=== PATIENT | male | born 1955 | race American Indian/Alaskan Native ===

== ENCOUNTER 2018-11-06 08:05 | Inpatient (IN) | payer MEDICAID ==
[2018-11-06] MEDS ORDERED: DUONEB *Not for PRN Use IH ONE ×2 (08:15→09:30)
[2018-11-06 09:15] LABS: Basophils # (Auto) 0.3 K/mm3 (0.0-0.1); Basophils % (Auto) 2.4 % (0.0-1.8); Eosinophils # (Auto) 0.2 K/mm3 (0.0-0.4); Eosinophils % (Auto) 1.8 % (0.0-4.3); Hematocrit 44.1 % (35.5-45.6); Hemoglobin 14.4 gm/dl (11.8-15.2); Lymphocytes # (Auto) 3.7 K/mm3 (1.2-5.4); Lymphocytes % (Auto) 30.1 % (13.4-35.0); Mean Corpuscular HGB Conc 33 % (32-34); Mean Corpuscular Volume 89 fl (84-94); Monocytes # (Auto) 1.2 K/mm3 (0.0-0.8); Monocytes % (Auto) 9.4 % (0.0-7.3); Platelet Count 264 K/mm3 (140-440); Red Blood Count 4.95 M/mm3 (3.65-5.03)
[2018-11-06 09:21] LABS: INR 1.01 (0.87-1.13)
[2018-11-06 09:22] LABS: Partial Thromboplastin Time 24.4 Sec. (24.2-36.6)
[2018-11-06 09:26] LABS: Alanine Aminotransferase 18 units/L (7-56); Albumin 3.9 g/dL (3.9-5); BUN/Creatinine Ratio 10; Blood Urea Nitrogen 8 mg/dL (9-20); Hemolysis Index 20
[2018-11-06] MEDS ORDERED: MAXIPIME/NS 1 GM/100 ML 1 GM/100 ML BAG IV ONE (11:11)
--- NOTE | 2018-11-06 11:17 | Emergency Department Report ---
ED General Adult HPI - General Chief complaint: Dyspnea/Respdistress Stated complaint: LIZETTE Time Seen by Provider: 11/06/18 08:48 Source: patient, family, EMS Mode of arrival: Stretcher Limitations: No Limitations - History of Present Illness Initial comments: Patient presents to support with a chief complaint of increasing shortness of breath. The patient has a history of COPD. Prior to arrival EMS. The patient IV steroids, 2 g IV magnesium, and breathing treatments. Patient complains of chest tightness but denies chest pain. Patient is using accessory muscles to breathe and is in respiratory distress upon arrival -: Sudden Severity scale (0 -10): 0 Consistency: constant Improves with: none Worsens with: none Associated Symptoms: denies other symptoms Treatments Prior to Arrival: none - Related Data Home Medications Medication Instructions Recorded Confirmed Last Taken Allopurinol [Zyloprim] 100 mg PO QDAY 11/06/18 11/06/18 Unknown Amlodipine Besylate [Norvasc] 5 mg PO QDAY 11/06/18 11/06/18 Unknown Aspirin [Adult Aspirin] 81 mg PO QDAY 11/06/18 11/06/18 Unknown Famotidine [Pepcid] 20 mg PO QDAY 11/06/18 11/06/18 Unknown Losartan Potassium 100 mg PO QDAY 11/06/18 11/06/18 Unknown Metformin HCl [Glucophage Xr] 500 mg PO BID 11/06/18 11/06/18 Unknown Naproxen [Naprosyn] 500 mg PO BID 11/06/18 11/06/18 Unknown Simvastatin 20 mg PO QHS 11/06/18 11/06/18 Unknown Allergies Allergy/AdvReac Type Severity Reaction Status Date / Time No Known Allergies Allergy Unverified 11/06/18 08:18 ED Review of Systems ROS: Stated complaint: LIZETTE Other details as noted in HPI Constitutional: denies: chills, fever Eyes: denies: eye pain, eye discharge, vision change ENT: denies: ear pain, throat pain Respiratory: shortness of breath. denies: cough, wheezing Cardiovascular: denies: chest pain, palpitations Endocrine: no symptoms reported Gastrointestinal: denies: abdominal pain, nausea, diarrhea Genitourinary: denies: urgency, dysuria Musculoskeletal: denies: back pain, joint swelling, arthralgia Skin: denies: rash, lesions Neurological: denies: headache, weakness, paresthesias Psychiatric: denies: anxiety, depression Hematological/Lymphatic: denies: easy bleeding, easy bruising ED Past Medical Hx - Past Medical History Previous Medical History?: Yes Hx Hypertension: Yes Hx Diabetes: Yes Additional medical history: Acid Reflux. Gout. High cholesterol - Social History Smoking Status: Former Smoker Substance Use Type: Alcohol - Medications Home Medications: Home Medications Medication Instructions Recorded Confirmed Last Taken Type Allopurinol [Zyloprim] 100 mg PO QDAY 11/06/18 11/06/18 Unknown History Amlodipine Besylate [Norvasc] 5 mg PO QDAY 11/06/18 11/06/18 Unknown History Aspirin [Adult Aspirin] 81 mg PO QDAY 11/06/18 11/06/18 Unknown History Famotidine [Pepcid] 20 mg PO QDAY 11/06/18 11/06/18 Unknown History Losartan Potassium 100 mg PO QDAY 11/06/18 11/06/18 Unknown History Metformin HCl [Glucophage Xr] 500 mg PO BID 11/06/18 11/06/18 Unknown History Naproxen [Naprosyn] 500 mg PO BID 11/06/18 11/06/18 Unknown History Simvastatin 20 mg PO QHS 11/06/18 11/06/18 Unknown History ED Physical Exam - General Limitations: No Limitations General appearance: alert, in distress - Head Head exam: Present: atraumatic, normocephalic - Eye Eye exam: Present: normal appearance. Absent: PERRL, EOMI - ENT ENT exam: Present: mucous membranes moist - Neck Neck exam: Present: normal inspection - Respiratory Respiratory exam: Present: respiratory distress (and moderate risk for distress and using assist her muscles for respiration), decreased breath sounds - Cardiovascular Cardiovascular Exam: Present: regular rate, normal rhythm. Absent: systolic murmur, diastolic murmur, rubs, gallop - GI/Abdominal GI/Abdominal exam: Present: soft, normal bowel sounds. Absent: distended, tenderness - Rectal Rectal exam: Present: deferred - Extremities Exam Extremities exam: Present: normal inspection - Back Exam Back exam: Present: normal inspection - Neurological Exam Neurological exam: Present: alert, oriented X3, CN II-XII intact. Absent: motor sensory deficit - Psychiatric Psychiatric exam: Present: normal affect, normal mood - Skin Skin exam: Present: warm, dry, intact, normal color. Absent: rash ED Course Vital Signs 11/06/18 11/06/18 11/06/18 08:22 08:24 08:30 Temperature 98.4 F Pulse Rate 118 H 121 H Respiratory 30 H 30 H 29 H Rate Blood Pressure 161/87 Blood Pressure 146/83 [Left] O2 Sat by Pulse 99 99 100 Oximetry 11/06/18 11/06/18 11/06/18 09:01 09:30 10:00 Temperature Pulse Rate 127 H 111 H 104 H Respiratory 22 22 20 Rate Blood Pressure 107/69 124/76 118/66 Blood Pressure [Left] O2 Sat by Pulse 98 96 96 Oximetry 11/06/18 11/06/18 11/06/18 10:30 11:00 11:30 Temperature Pulse Rate 101 H 90 90 Respiratory 15 20 20 Rate Blood Pressure 130/61 125/71 137/80 Blood Pressure [Left] O2 Sat by Pulse 96 96 96 Oximetry ED Medical Decision Making - Lab Data Result diagrams: 11/06/18 08:50 11/06/18 08:50 Lab Results 11/06/18 11/06/18 11/06/18 Range/Units 08:50 08:50 08:50 WBC 12.3 H (4.5-11.0) K/mm3 RBC 4.95 (3.65-5.03) M/mm3 Hgb 14.4 (11.8-15.2) gm/dl Hct 44.1 (35.5-45.6) % MCV 89 (84-94) fl MCH 29 (28-32) pg MCHC 33 (32-34) % RDW 15.0 (13.2-15.2) % Plt Count 264 (140-440) K/mm3 Lymph % (Auto) 30.1 (13.4-35.0) % [place] % (Auto) 9.4 H (0.0-7.3) % Eos % (Auto) 1.8 (0.0-4.3) % Baso % (Auto) 2.4 H (0.0-1.8) % Lymph # 3.7 (1.2-5.4) K/mm3 [place] # 1.2 H (0.0-0.8) K/mm3 Eos # 0.2 (0.0-0.4) K/mm3 Baso # 0.3 H (0.0-0.1) K/mm3 Seg Neutrophils % 56.3 (40.0-70.0) % Seg Neutrophils # 6.9 (1.8-7.7) K/mm3 PT 13.0 (12.2-14.9) Sec. INR 1.01 (0.87-1.13) APTT 24.4 (24.2-36.6) Sec. Sodium 142 (137-145) mmol/L Potassium 4.2 (3.6-5.0) mmol/L Chloride 101.6 (98-107) mmol/L Carbon Dioxide 26 (22-30) mmol/L Anion Gap 19 mmol/L BUN 8 L (9-20) mg/dL Creatinine 0.8 (0.8-1.5) mg/dL Estimated GFR > 60 ml/min BUN/Creatinine Ratio 10 % Glucose 175 H (75-100) mg/dL Calcium 9.0 (8.4-10.2) mg/dL Total Bilirubin 0.20 (0.1-1.2) mg/dL AST 24 (5-40) units/L ALT 18 (7-56) units/L Alkaline Phosphatase 69 (35-129) units/L Troponin T < 0.010 (0.00-0.029) ng/mL NT-Pro-B Natriuret Pep 63.73 (0-900) pg/mL Total Protein 6.6 (6.3-8.2) g/dL Albumin 3.9 (3.9-5) g/dL Albumin/Globulin Ratio 1.4 % Lipase 16 (13-60) units/L 11/06/ Range/Units 10:23 WBC (4.5-11.0) K/mm3 RBC (3.65-5.03) M/mm3 Hgb (11.8-15.2) gm/dl Hct (35.5-45.6) % MCV (84-94) fl MCH (28-32) pg MCHC (32-34) % RDW (13.2-15.2) % Plt Count (140-440) K/mm3 Lymph % (Auto) (13.4-35.0) % [place] % (Auto) (0.0-7.3) % Eos % (Auto) (0.0-4.3) % Baso % (Auto) (0.0-1.8) % Lymph # (1.2-5.4) K/mm3 [place] # (0.0-0.8) K/mm3 Eos # (0.0-0.4) K/mm3 Baso # (0.0-0.1) K/mm3 Seg Neutrophils % (40.0-70.0) % Seg Neutrophils # (1.8-7.7) K/mm3 PT (12.2-14.9) Sec. INR (0.87-1.13) APTT (24.2-36.6) Sec. Sodium (137-145) mmol/L Potassium (3.6-5.0) mmol/L Chloride (98-107) mmol/L Carbon Dioxide (22-30) mmol/L Anion Gap mmol/L BUN (9-20) mg/dL Creatinine (0.8-1.5) mg/dL Estimated GFR ml/min BUN/Creatinine Ratio % Glucose (75-100) mg/dL Calcium (8.4-10.2) mg/dL Total Bilirubin (0.1-1.2) mg/dL AST (5-40) units/L ALT (7-56) units/L Alkaline Phosphatase (35-129) units/L Troponin T < 0.010 (0.00-0.029) ng/mL NT-Pro-B Natriuret Pep (0-900) pg/mL Total Protein (6.3-8.2) g/dL Albumin (3.9-5) g/dL Albumin/Globulin Ratio % Lipase (13-60) units/L - EKG Data -: EKG Interpreted by Oh EKG shows normal: sinus rhythm Rate: normal - Radiology Data Radiology results: report reviewed - Medical Decision Making patient placed on BiPaP Portable chest made to remove the patient from BiPAP to no avail Critical Care Time: Yes Critical care time in (mins) excluding proc time.: 45 Critical care attestation.: If time is entered above; I have spent that time in minutes in the direct care of this critically ill patient, excluding procedure time. ED Disposition Clinical Impression: Respiratory failure, COPD exacerbation Disposition: OP ADMIT IP TO THIS HOSP Is pt being admited?: Yes Does the pt Need Aspirin: Yes Condition: Fair Instructions: Chronic Obstructive Pulmonary Disease (ED) Referrals: VERONIQUE TAYLOR MD [Primary Care Provider] - 3-5 Days
[2018-11-06 11:19] LABS: ABG Base Excess 0.6 mmol/L (-2.0-3.0); ABG HCO3 26.5 mmol/L (20.0-26.0); ABG PCO2 47.3 mm Hg; ABG PH 7.366 pH Units (7.350-7.450); ABG PO2 95.9 mm Hg (80.0-90.0)
[2018-11-06 11:21] LABS: ABG Oxygen Saturation 96.9 % (95.0-99.0)
[2018-11-06 11:22] LABS: ABG Methemoglobin 0.4 % (0.0-1.5)
--- NOTE | 2018-11-06 11:39 | XRay Report ---
CHEST 1 VIEW 11/06/2018 11:10 AM INDICATION / CLINICAL INFORMATION: sob. COMPARISON: None available. FINDINGS: SUPPORT DEVICES: None. HEART / MEDIASTINUM: Upper normal size for AP portable technique. LUNGS / PLEURA: No significant pulmonary or pleural abnormality. No pneumothorax. ADDITIONAL FINDINGS: No significant additional findings. IMPRESSION: 1. No acute findings. Signer Name: Mauro Jones MD Signed: 11/06/2018 11:34 AM Workstation Name: [id number]
[2018-11-06] MEDS ORDERED: BABY ASPIRIN PO ONE (11:53)
--- NOTE | 2018-11-06 12:17 | History and Physical Report ---
History of Present Illness Chief complaint: I just cant catch my breath History of present illness: 63 YO Male with Obesity Hypoventilation, LAUREN noncompliant with CPAP, HTN, DM, GERD, Gout, HLD presents to ED for evaluation. Pt states that he has experienced shortness of breath over the past 2 days with worsening symptoms over the past 1 day. Pt acknowledges increased productive cough with clear sputum, increased ne bulizer therapy without relief. EMS notified, and upon arrival the patient was found to be in distress and transported to [facility]. Pt seen and evaluated in ED and found to have COPD Exacerbation complicated by Pneumonia, and Acute Hypoxemic Respiratory Failure. Pt treated with nebulizer therapy, and NIPPV in the ED without significant improvement. Pt admitted to medical floor and initiated on Pneumonia protocol. Pt denies fever, chills, CP, Palpitations, NVD, Trauma, skin rash, malaise, unilateral leg swelling, calf pain, prolonged travel/immobility, individual/family history of DVT/PE/Bleeding/Blood Clotting Disorders. No prior admission for review. All listed medication reconciled at time of admission. Pulmonary team consulted in ED. Past History Past Medical History: COPD, diabetes, GERD, hypertension, hyperlipidemia, other (LAUREN) Past Surgical History: No surgical history, Other (reviewed) Social history: , lives with family. denies: smoking, alcohol abuse, prescription drug abuse Family history: diabetes, hypertension Medications and Allergies Allergies Allergy/AdvReac Type Severity Reaction Status Date / Time No Known Allergies Allergy Unverified 11/06/18 08:18 Home Medications Medication Instructions Recorded Confirmed Last Taken Type Allopurinol [Zyloprim] 100 mg PO QDAY 11/06/18 11/06/18 Unknown History Amlodipine Besylate [Norvasc] 5 mg PO QDAY 11/06/18 11/06/18 Unknown History Aspirin [Adult Aspirin] 81 mg PO QDAY 11/06/18 11/06/18 Unknown History Famotidine [Pepcid] 20 mg PO QDAY 11/06/18 11/06/18 Unknown History Losartan Potassium 100 mg PO QDAY 11/06/18 11/06/18 Unknown History Metformin HCl [Glucophage Xr] 500 mg PO BID 11/06/18 11/06/18 Unknown History Naproxen [Naprosyn] 500 mg PO BID 11/06/18 11/06/18 Unknown History Simvastatin 20 mg PO QHS 11/06/18 11/06/18 Unknown History Review of Systems Constitutional: no weight loss, no weight gain, no fever, no chills Ears, nose, mouth and throat: no ear pain, no ear discharge, no tinnitis, no decreased hearing, no nose pain, no nasal congestion Cardiovascular: no chest pain, no orthopnea, no palpitations Respiratory: cough, cough with sputum, excessive sputum, shortness of breath, no congestion, no wheezing, no pleurisy Gastrointestinal: no abdominal pain, no nausea, no vomiting, no constipation, no change in bowel habits Genitourinary Male: no hematuria, no flank pain, no discharge, no urinary frequency, no urinary hesitancy, no nocturia Rectal: no pain, no bleeding Musculoskeletal: no neck stiffness, no neck pain, no shooting arm pain, no arm numbness/tingling, no low back pain, no shooting leg pain, no leg numbness/tingling Integumentary: no rash, no pruritis, no redness, no sores, no wounds, no boils Neurological: no transient paralysis, no paralysis, no weakness, no parathesias, no numbness, no tingling, no seizures, no syncope Psychiatric: no anxiety, no memory loss, no sleep disturbances, no insomnia, no change in appetite, no change in libido, no suicidal ideation, no disorientation Endocrine: no cold intolerance, no heat intolerance, no polyphagia, no excessive thirst, no excessive sweating, no flushing Hematologic/Lymphatic: no easy bruising, no easy bleeding Allergic/Immunologic: no urticaria, no allergic rhinitis, no wheezing Exam - Constitutional Vitals: Temp Pulse Resp BP Pulse Ox 98.4 F 90 20 137/80 96 11/06/18 08:22 11/06/18 11:30 11/06/18 11:30 11/06/18 11:30 11/06/18 11:30 General appearance: Present: mild distress, obese - EENT Eyes: Present: PERRL ENT: hearing intact, clear oral mucosa - Neck Neck: Present: supple, normal ROM - Respiratory Respiratory effort: labored Respiratory: bilateral: diminished, rhonchi - Cardiovascular Heart Sounds: Present: S1 & S2. Absent: rub, click - Extremities Extremities: pulses symmetrical, No edema Peripheral Pulses: within normal limits - Abdominal General gastrointestinal: Present: soft, non-tender, non-distended, normal bowel sounds Male genitourinary: Present: normal - Integumentary Integumentary: Present: clear, warm, dry - Musculoskeletal Musculoskeletal: gait normal, strength equal bilaterally - Psychiatric Psychiatric: appropriate mood/affect, intact judgment & insight - Neurologic Neurologic: CNII-XII intact, moves all extremities Results - Labs CBC & Chem 7: 11/06/18 08:50 11/06/18 08:50 Labs: Abnormal lab results 11/06/18 11/06/18 11/06/18 Range/Units 08:50 08:50 11:24 WBC 12.3 H (4.5-11.0) K/mm3 [place] % (Auto) 9.4 H (0.0-7.3) % Baso % (Auto) 2.4 H (0.0-1.8) % [place] # 1.2 H (0.0-0.8) K/mm3 Baso # 0.3 H (0.0-0.1) K/mm3 ABG pO2 (80.0-90.0) mm Hg ABG HCO3 (20.0-26.0) mmol/L BUN 8 L (9-20) mg/dL Glucose 175 H (75-100) mg/dL Lactic Acid 4.40 H* (0.7-2.0) mmol/L 11/06/18 Range/Units Unknown WBC (4.5-11.0) K/mm3 [place] % (Auto) (0.0-7.3) % Baso % (Auto) (0.0-1.8) % [place] # (0.0-0.8) K/mm3 Baso # (0.0-0.1) K/mm3 ABG pO2 95.9 H (80.0-90.0) mm Hg ABG HCO3 26.5 H (20.0-26.0) mmol/L BUN (9-20) mg/dL Glucose (75-100) mg/dL Lactic Acid (0.7-2.0) mmol/L Assessment and Plan - Patient Problems (1) COPD exacerbation Current Visit: Yes Status: Acute Plan to address problem: IV steroid therapy, IV antibiotic therapy, IV steroid therapy, chest x ray, pulse oximetry, NIPPV, pulmonary consulted, CT Angio chest. (2) Respiratory failure Current Visit: Yes Status: Acute Qualifiers: Chronicity: acute Respiratory failure complication: hypoxia Qualified Code(s): J96.01 - Acute respiratory failure with hypoxia Plan to address problem: Chest x ray, supplemental oxygen, nebulizer therapy, NIPPV, IV steroid therapy, mangesium sulfate IV x 1, pulse oximetry, ABG, Pulmonary consulted, (3) Pneumonia Current Visit: Yes Status: Acute Qualifiers: Laterality: left Lung location: lower lobe of lung Plan to address problem: Pneumonia protocol, IV antibiotic therapy, chest x ray, blood cultures, supplemental oxygen, nebulizer therapy, supportive care. (4) Acidosis Current Visit: Yes Status: Acute Plan to address problem: Treat pneumonia, supportive care, repeat bmp in am (5) Obesity hypoventilation syndrome Current Visit: Yes Status: Acute Plan to address problem: Balanced diet, increased physical activity at discharge, NIPPV as clinically indicated. (6) HTN (hypertension) Current Visit: Yes Status: Acute Qualifiers: Hypertension type: essential hypertension Qualified Code(s): I10 - Essential (primary) hypertension Plan to address problem: Monitor BP q shift, supportive care. (7) HLD (hyperlipidemia) Current Visit: Yes Status: Acute Qualifiers: Hyperlipidemia type: mixed hyperlipidemia Qualified Code(s): E78.2 - Mixed hyperlipidemia Plan to address problem: Statin therapy, lipid panel, low cholesterol diet. (8) Diabetes Current Visit: Yes Status: Acute Plan to address problem: ADA diet, insulin, accu check, hypoglycemia protocol (9) GERD (gastroesophageal reflux disease) Current Visit: Yes Status: Acute Qualifiers: Esophagitis presence: without esophagitis Qualified Code(s): K21.9 - Gastro-esophageal reflux disease without esophagitis Plan to address problem: PPi therapy, supportive care. (10) DVT prophylaxis Current Visit: Yes Status: Acute Plan to address problem: SCD to BLE while in bed, prophylactic lovenox
[2018-11-06] MEDS ORDERED: SODIUM CHLORIDE FLUSH SYRINGE 10 ML IV PRN (12:27)
[2018-11-06] MEDS ORDERED: ZOFRAN IV PRN (12:27)
[2018-11-06] MEDS ORDERED: TYLENOL PO PRN (12:27)
--- NOTE | 2018-11-06 13:34 | Cat Scan Report ---
CTA CHEST WITH CONTRAST INDICATION : MAIN: dypsnea TECH NOTES: PT C/O SOB X LAST NIGHT. HX: HTN AND PRE-DM. 100 CC OMNI 350 . Shortness of breath for one day TECHNIQUE: Axial imaging performed through the chest, with contrast bolus timing set to maximize opa cification of the pulmonary arteries. Sagittal and coronal reformatted images. 3-plane MIP reformatte d images were obtained. All CT scans at this location are performed using CT dose reduction for ALAR A by means of automated exposure control. 100 mL of intravenous contrast administered. COMPARISON: None FINDINGS: Bolus: Contrast bolus timing is adequate. PTE: No filling defect is present to suggest PTE. Mediastinum: Heart and great vessels appear normal. No pathologic mediastinal adenopathy. Lungs: Lungs are clear. Minimal emphysematous changes are noted in the upper lung zones. Bones: Degenerative changes in the spine with nothing acute. Upper abdomen: Limited imaging of the upper abdomen shows nothing acute. IMPRESSION: Negative for PTE. Clear lungs. Signer Name: Raza Moreno Jr, MD Signed: 11/06/2018 1:29 PM Workstation Name: [id number]
[2018-11-06] MEDS: HumaLOG SUB-Q SCH ×2 (18:17→23:16)
[2018-11-06] MEDS: NACL 0.9% 1000 ML 1,000 ML IV SCH (21:55)
[2018-11-06] MEDS: SOLU-Medrol IV SCH (21:56)
[2018-11-06] MEDS: NAPROSYN PO SCH (21:56)
[2018-11-06] MEDS: PEPCID PO SCH (21:56)
[2018-11-06] MEDS: SODIUM CHLORIDE FLUSH SYRINGE 10 ML IV SCH (21:56)
[2018-11-06] MEDS: PRAVACHOL PO SCH (21:57)
[2018-11-06] MEDS: LOVENOX SUB-Q SCH (21:57)
[2018-11-06] MEDS ORDERED: NON-FORMULARY (Simvastatin [Simvastatin] 20 MG) PO SCH (22:00)
[2018-11-07 04:36] LABS: Basophils % (Auto) 0.1 % (0.0-1.8); Hematocrit 43.6 % (35.5-45.6); Hemoglobin 14.3 gm/dl (11.8-15.2); Lymphocytes # (Auto) 1.4 K/mm3 (1.2-5.4); Lymphocytes % (Auto) 7.6 % (13.4-35.0); Mean Corpuscular HGB Conc 33 % (32-34); Mean Corpuscular Volume 88 fl (84-94); Monocytes # (Auto) 0.6 K/mm3 (0.0-0.8); Monocytes % (Auto) 3.2 % (0.0-7.3); Platelet Count 257 K/mm3 (140-440); Red Blood Count 4.96 M/mm3 (3.65-5.03); Red Cell Distribution Width 14.9 % (13.2-15.2)
[2018-11-07 04:55] LABS: BUN/Creatinine Ratio 18; Blood Urea Nitrogen 14 mg/dL (9-20); Calcium 8.9 mg/dL (8.4-10.2); Hemolysis Index 0
[2018-11-07] MEDS: HumaLOG SUB-Q SCH ×3 (08:40→17:54)
[2018-11-07] MEDS: NAPROSYN PO SCH ×2 (09:36→21:16)
[2018-11-07] MEDS: HALFPRIN EC PO SCH (09:37)
[2018-11-07] MEDS: ZYLOPRIM PO SCH (09:37)
[2018-11-07] MEDS: NORVASC PO SCH (09:37)
[2018-11-07] MEDS: SOLU-Medrol IV SCH ×2 (09:38→21:16)
[2018-11-07] MEDS: PEPCID PO SCH ×2 (09:38→21:16)
[2018-11-07] MEDS: COZAAR PO SCH (09:38)
[2018-11-07] MEDS: ROCEPHIN/NS 2 GM/100 ML 2 GM/100 ML BAG IV SCH (09:39)
[2018-11-07] MEDS ORDERED: NON-FORMULARY (Losartan Potassium [Losartan Potassium] 100 MG) PO SCH (10:00)
[2018-11-07] MEDS: PROVENTIL IH PRN ×3 (10:15→21:16)
--- NOTE | 2018-11-07 11:35 | Consultation ---
History of Present Illness Reason for consult: COPD, obstructive sleep apnea History of present illness: Mr. Valdez is a 63-year-old -[place] male with known history of heavy cigarette smoking until 2 months ago was admitted to the hospital with increasing shortness of breath and cough. Patient was found to have COPD with CO2 retention. He also in the past has been diagnosed with sleep apnea but does not have CPAP machine. Patient has chronic history of dyspnea on exertion. He has been diagnosed with COPD in the past. He reports cough productive of slightly yellow sputum at this time. He denied any hemoptysis. He has history of snoring and excessive daytime sleepiness. Past History Past Medical History: COPD, diabetes, GERD, hypertension, hyperlipidemia, other (LAUREN) Past Surgical History: No surgical history, Other (reviewed) Social history: , lives with family. denies: smoking, alcohol abuse, prescription drug abuse Family history: diabetes, hypertension Medications and Allergies Allergies Allergy/AdvReac Type Severity Reaction Status Date / Time No Known Allergies Allergy Unverified 11/06/18 08:18 Home Medications Medication Instructions Recorded Confirmed Last Taken Type Allopurinol [Zyloprim] 100 mg PO QDAY 11/06/18 11/06/18 Unknown History Amlodipine Besylate [Norvasc] 5 mg PO QDAY 11/06/18 11/06/18 Unknown History Aspirin [Adult Aspirin] 81 mg PO QDAY 11/06/18 11/06/18 Unknown History Famotidine [Pepcid] 20 mg PO QDAY 11/06/18 11/06/18 Unknown History Losartan Potassium 100 mg PO QDAY 11/06/18 11/06/18 Unknown History Metformin HCl [Glucophage Xr] 500 mg PO BID 11/06/18 11/06/18 Unknown History Naproxen [Naprosyn] 500 mg PO BID 11/06/18 11/06/18 Unknown History Simvastatin 20 mg PO QHS 11/06/18 11/06/18 Unknown History Active Meds: Active Medications Acetaminophen (Tylenol) 650 mg PO Q4H PRN PRN Reason: Pain MILD(1-3)/Fever >100.5/BENITO Albuterol (Proventil) 2.5 mg IH Q4HRT PRN PRN Reason: Shortness Of Breath Last Admin: 11/07/18 10:15 Dose: 2.5 mg Documented by: Allopurinol (Zyloprim) 100 mg PO QDAY [facility] Last Admin: 11/07/18 09:37 Dose: 100 mg Documented by: Amlodipine Besylate (Norvasc) 5 mg PO QDAY [facility] Last Admin: 11/07/18 09:37 Dose: 5 mg Documented by: Aspirin (Halfprin Ec) 81 mg PO QDAY [facility] Last Admin: 11/07/18 09:37 Dose: 81 mg Documented by: Enoxaparin Sodium (Lovenox) 40 mg SUB-Q QDAY@2200 [facility] Last Admin: 11/06/18 21:57 Dose: 40 mg Documented by: Famotidine (Pepcid) 10 mg PO BID [facility] Last Admin: 11/07/18 09:38 Dose: 10 mg Documented by: Azithromycin 500 mg/ Sodium (Chloride) 250 mls @ 250 mls/hr IV Q24HR [facility]; Protocol Ceftriaxone Sodium (Rocephin/Ns 2 Gm/100 Ml) 2 gm in 100 mls @ 200 mls/hr IV Q24HR [facility]; Protocol Last Admin: 11/07/18 09:39 Dose: 200 mls/hr Documented by: Sodium Chloride (Nacl 0.9% 1000 Ml) 1,000 mls @ 75 mls/hr IV DIRECT [facility] Last Admin: 11/06/18 21:55 Dose: 75 mls/hr Documented by: Insulin Human Lispro (Humalog) 0 unit SUB-Q ACHS [facility]; Protocol Last Admin: 11/07/18 08:40 Dose: Not Given Documented by: Losartan Potassium (Cozaar) 100 mg PO QDAY [facility] Last Admin: 11/07/18 09:38 Dose: 100 mg Documented by: Methylprednisolone Sodium Succinate (Solu-Medrol) 40 mg IV Q12HR [facility] Last Admin: 11/07/18 09:38 Dose: 40 mg Documented by: Naproxen (Naprosyn) 500 mg PO BID [facility] Last Admin: 11/07/18 09:36 Dose: 500 mg Documented by: Ondansetron HCl (Zofran) 4 mg IV Q8H PRN PRN Reason: Nausea And Vomiting Pravastatin Sodium (Pravachol) 40 mg PO QHS [facility] Last Admin: 11/06/18 21:57 Dose: 40 mg Documented by: Sodium Chloride (Sodium Chloride Flush Syringe 10 Ml) 10 ml IV BID [facility] Last Admin: 11/06/18 21:56 Dose: 10 ml Documented by: Sodium Chloride (Sodium Chloride Flush Syringe 10 Ml) 10 ml IV PRN PRN PRN Reason: LINE FLUSH Review of Systems All systems: negative (snoring, EDS, shortness of breath cough and mentioned in HPI) Physical Examination Vital signs: Vital Signs Temp Pulse Resp BP Pulse Ox 98.4 F 118 H 30 H 146/83 99 11/06/18 08:22 11/06/18 08:22 11/06/18 08:22 11/06/18 08:22 11/06/18 08:22 General appearance: no acute distress, other (morbidly obese) Eyes: non-icteric ENT: oropharynx moist, other (poor dentition, crowded oropharynx) Neck: supple, no lymphadenopathy, no JVD, other (neck size over 17 inches) Effort: normal Ascultation: Bilateral: diminished breath sounds Cardiovascular: regular rate and rhythm Gastrointestinal: normoactive bowel sounds, soft, non-tender, other (morbidly obese) Integumentary: normal Extremities: no cyanosis, no edema, pink and warm Musculoskeletal: no deformities Gait: other (not examined) normal mental status, non-focal exam Results - Laboratory Findings CBC and BMP: 11/07/18 04:09 11/07/18 04:09 ABG ABG pH 7.366 pH Units (7.350-7.450) 11/06/18 Unknown ABG pCO2 47.3 mm Hg 11/06/18 Unknown ABG pO2 95.9 mm Hg (80.0-90.0) H 11/06/18 Unknown ABG O2 Saturation 96.9 % (95.0-99.0) 11/06/18 Unknown PT/INR, D-dimer PT 13.0 Sec. (12.2-14.9) 11/06/18 08:50 INR 1.01 (0.87-1.13) 11/06/18 08:50 Abnormal lab findings: Abnormal Labs 11/06/18 11/06/18 11/06/18 08:50 08:50 11:24 WBC 12.3 H Lymph % (Auto) [place] % (Auto) 9.4 H Baso % (Auto) 2.4 H [place] # 1.2 H Baso # 0.3 H Seg Neutrophils % Seg Neutrophils # ABG pO2 ABG HCO3 BUN 8 L Glucose 175 H POC Glucose Lactic Acid 4.40 H* 11/06/18 11/06/18 11/06/18 13:28 15:33 16:44 WBC Lymph % (Auto) [place] % (Auto) Baso % (Auto) [place] # Baso # Seg Neutrophils % Seg Neutrophils # ABG pO2 ABG HCO3 BUN Glucose POC Glucose Lactic Acid 4.40 H* 4.50 H* 3.60 H* 11/06/18 11/06/18 11/06/18 17:00 19:11 22:43 WBC Lymph % (Auto) [place] % (Auto) Baso % (Auto) [place] # Baso # Seg Neutrophils % Seg Neutrophils # ABG pO2 ABG HCO3 BUN Glucose POC Glucose 199 H 175 H Lactic Acid 3.90 H* 11/06/18 11/07/18 11/07/18 Unknown 00:49 04:09 WBC 19.1 H Lymph % (Auto) 7.6 L [place] % (Auto) Baso % (Auto) [place] # Baso # Seg Neutrophils % 89.1 H Seg Neutrophils # 17.0 H ABG pO2 95.9 H ABG HCO3 26.5 H BUN Glucose POC Glucose Lactic Acid 2.10 H* 11/07/18 11/07/18 11/07/18 04:09 04:09 07:35 WBC Lymph % (Auto) [place] % (Auto) Baso % (Auto) [place] # Baso # Seg Neutrophils % Seg Neutrophils # ABG pO2 ABG HCO3 BUN Glucose 186 H POC Glucose 141 H Lactic Acid 2.30 H* - Diagnostic Findings CT scan - chest: image reviewed (CTA unremarkable) Assessment and Plan Impression: Acute on chronic hypoxic hypercapnic respiratory failure Obstructive sleep apnea syndrome COPD with exacerbation Suspect obesity hypoventilation syndrome Hypertension Diabetes mellitus Hyperlipidemia History of CVA Recommendations: Continue with IV steroids, antibiotic and bronchodilator therapy. We'll closely follow him with you. Continue BiPAP at night while sleeping Full pulmonary function test and sleep study as outpatient. Weight reduction was recommended. Smoking cessation counseling provided.
[2018-11-07] MEDS: SODIUM CHLORIDE FLUSH SYRINGE 10 ML IV SCH ×2 (11:57→22:00)
[2018-11-07] MEDS: ZITHROMAX 500 MG in NACL 0.9% 250ML 250 ML IV SCH (11:57)
--- NOTE | 2018-11-07 15:10 | Progress Note ---
Assessment and Plan Acute on chronic hypoxic hypercapnic respiratory failure No pneumonia on admission Obstructive sleep apnea syndrome COPD with exacerbation Suspect obesity hypoventilation syndrome Hypertension Diabetes mellitus Hyperlipidemia History of CVA Recommendations: Continue with IV steroids, antibiotic and bronchodilator therapy. We'll closely follow him with you. Continue BiPAP at night while sleeping Full pulmonary function test and sleep study as outpatient. Weight reduction was recommended. Smoking cessation counseling provided. Subjective Date of service: 11/07/18 Principal diagnosis: Increasing SOB Interval history: 63 YO Male with Obesity Hypoventilation, LAUREN noncompliant with CPAP, HTN, DM, GERD, Gout, HLD presents to ED for evaluation. Pt states that he has experienced shortness of breath over the past 2 days with worsening symptoms over the past 1 day. Pt acknowledges increased productive cough with clear sputum, increased nebulizer therapy without relief. EMS notified, and upon arrival the patient was found to be in distress and transported to [facility]. Pt seen and evaluated in ED and found to have COPD Exacerbation , and Acute Hypoxemic Respiratory Failure. Pt treated with nebulizer therapy, and NIPPV in the ED without significant improvement. Pt admitted to medical floor and initiated on Pneumonia protocol. Pt denies fever, chills, CP, Palpitations, NVD, Trauma, skin rash, malaise, unilateral leg swelling, calf pain, prolonged travel/immobility, individual/family history of DVT/PE/Bleeding/Blood Clotting Disorders. No prior admission for review. All listed medication reconciled at time of admission. Pulmonary team consulted in ED. Objective - Constitutional Vitals: Vital Signs - 12hr 11/07/18 11/07/18 11/07/18 05:21 08:05 09:31 Temperature 98.3 F Pulse Rate 88 Pulse Rate [ Anterior] Respiratory 22 Rate Respiratory Rate [Anterior] Blood Pressure 135/80 162/77 O2 Sat by Pulse 100 98 Oximetry 11/07/18 11/07/18 11/07/18 09:37 09:38 10:24 Temperature Pulse Rate Pulse Rate [ 91 H Anterior] Respiratory Rate Respiratory 20 Rate [Anterior] Blood Pressure 162/77 162/77 O2 Sat by Pulse Oximetry 11/07/18 11:32 Temperature 98.1 F Pulse Rate 73 Pulse Rate [ Anterior] Respiratory 24 Rate Respiratory Rate [Anterior] Blood Pressure 136/64 O2 Sat by Pulse 95 Oximetry General appearance: Present: no acute distress, well-nourished - EENT Eyes: PERRL, EOM intact ENT: hearing intact, clear oral mucosa Ears: bilateral: normal - Neck Neck: supple, normal ROM - Respiratory Respiratory effort: normal Respiratory: bilateral: CTA - Breasts Breasts: normal - Cardiovascular Rhythm: regular Heart Sounds: Present: S1 & S2. Absent: gallop, rub Extremities: pulses intact, No edema, normal color, Full ROM - Gastrointestinal General gastrointestinal: Present: soft, non-tender, non-distended, normal bowel sounds - Genitourinary Male genitourinary: normal - Integumentary Integumentary: clear, warm, dry - Musculoskeletal Musculoskeletal: 1, strength equal bilaterally - Neurologic Neurologic: moves all extremities - Psychiatric Psychiatric: memory intact, appropriate mood/affect, intact judgment & insight - Labs CBC & Chem 7: 11/08/18 04:40 11/08/18 04:40 Labs: Abnormal lab results 11/06/18 11/06/18 11/06/18 Range/Units 15:33 16:44 17:00 WBC (4.5-11.0) K/mm3 Lymph % (Auto) (13.4-35.0) % Seg Neutrophils % (40.0-70.0) % Seg Neutrophils # (1.8-7.7) K/mm3 Glucose (75-100) mg/dL POC Glucose 199 H (70-105) Lactic Acid 4.50 H* 3.60 H* (0.7-2.0) mmol/L 11/06/18 11/06/18 11/07/18 Range/Units 19:11 22:43 00:49 WBC (4.5-11.0) K/mm3 Lymph % (Auto) (13.4-35.0) % Seg Neutrophils % (40.0-70.0) % Seg Neutrophils # (1.8-7.7) K/mm3 Glucose (75-100) mg/dL POC Glucose 175 H (70-105) Lactic Acid 3.90 H* 2.10 H* (0.7-2.0) mmol/L 11/07/18 11/07/18 11/07/18 Range/Units 04:09 04:09 04:09 WBC 19.1 H (4.5-11.0) K/mm3 Lymph % (Auto) 7.6 L (13.4-35.0) % Seg Neutrophils % 89.1 H (40.0-70.0) % Seg Neutrophils # 17.0 H (1.8-7.7) K/mm3 Glucose 186 H (75-100) mg/dL POC Glucose (70-105) Lactic Acid 2.30 H* (0.7-2.0) mmol/L 11/07/18 11/07/18 Range/Units 07:35 11:39 WBC (4.5-11.0) K/mm3 Lymph % (Auto) (13.4-35.0) % Seg Neutrophils % (40.0-70.0) % Seg Neutrophils # (1.8-7.7) K/mm3 Glucose (75-100) mg/dL POC Glucose 141 H 155 H (70-105) Lactic Acid (0.7-2.0) mmol/L
[2018-11-07] MEDS: NACL 0.9% 1000 ML 1,000 ML IV SCH (17:53)
[2018-11-07] MEDS: LOVENOX SUB-Q SCH (21:16)
[2018-11-07] MEDS: PRAVACHOL PO SCH (21:16)
[2018-11-08] MEDS: HumaLOG SUB-Q SCH ×5 (00:47→22:03)
[2018-11-08] MEDS: PROVENTIL IH PRN ×3 (04:33→13:34)
[2018-11-08 04:58] LABS: Hematocrit 42.4 % (35.5-45.6); Hemoglobin 13.9 gm/dl (11.8-15.2); Mean Corpuscular HGB Conc 33 % (32-34); Mean Corpuscular Volume 88 fl (84-94); Platelet Count 247 K/mm3 (140-440); Red Blood Count 4.81 M/mm3 (3.65-5.03); Red Cell Distribution Width 15.6 % (13.2-15.2)
[2018-11-08 05:30] LABS: Alanine Aminotransferase 15 units/L (7-56); Albumin 3.7 g/dL (3.9-5); BUN/Creatinine Ratio 22; Blood Urea Nitrogen 20 mg/dL (9-20); Calcium 8.6 mg/dL (8.4-10.2); Hemolysis Index 0
[2018-11-08 05:59] LABS: Basophils % (Manual) 0 % (0.0-1.8); Eosinophils % (Manual) 0 % (0.0-4.3); Total Cells Counted 100
[2018-11-08 06:01] LABS: Macrocytosis Few
[2018-11-08 06:03] LABS: Platelet Estimate Consistent w Auto
[2018-11-08] MEDS: NACL 0.9% 1000 ML 1,000 ML IV SCH (07:23)
[2018-11-08] MEDS: NORVASC PO SCH (10:17)
[2018-11-08] MEDS: ZYLOPRIM PO SCH (10:17)
[2018-11-08] MEDS: NAPROSYN PO SCH ×2 (10:18→21:54)
[2018-11-08] MEDS: HALFPRIN EC PO SCH (10:18)
[2018-11-08] MEDS: COZAAR PO SCH (10:18)
[2018-11-08] MEDS: PEPCID PO SCH ×2 (10:18→21:54)
[2018-11-08] MEDS: SOLU-Medrol IV SCH ×4 (10:19→23:39)
[2018-11-08] MEDS: SODIUM CHLORIDE FLUSH SYRINGE 10 ML IV SCH ×2 (10:20→21:56)
[2018-11-08] MEDS: ROCEPHIN/NS 2 GM/100 ML 2 GM/100 ML BAG IV SCH (10:20)
[2018-11-08] MEDS: ZITHROMAX 500 MG in NACL 0.9% 250ML 250 ML IV SCH (11:24)
--- NOTE | 2018-11-08 13:40 | Progress Note ---
Assessment and Plan 63 y/o male with acute respiratory failure thought secondary to COPD exacerbation with untreated LAUREN/OHS. 1. Needs echo to assess for pulm HTN 2. Continue PPV at night 3. Most likely will need supplemental oxygen at discharge 4. Will increase steroid therapy to q6 for the next 24 hours. 5. Will add BID pulmicort and brovana therapy. Subjective Date of service: 11/08/18 Interval history: No acute events. Still on Venti mask at 35%. Sats in the mid 90's. Wore bipap last night. Getting NS at 75 but not sure why. Objective Vital Signs - 12hr 11/08/18 11/08/18 11/08/18 04:36 04:37 05:36 Temperature 98.3 F Pulse Rate 83 Pulse Rate [ 100 H Anterior] Respiratory 20 Rate Respiratory 20 Rate [Anterior] Blood Pressure 146/76 O2 Sat by Pulse 98 94 Oximetry 11/08/18 11/08/18 11/08/18 08:32 09:20 10:16 Temperature Pulse Rate Pulse Rate [ 88 Anterior] Respiratory Rate Respiratory 20 Rate [Anterior] Blood Pressure 116/90 O2 Sat by Pulse 95 Oximetry 11/08/18 11/08/18 11/08/18 10:17 10:18 11:23 Temperature 97.6 F Pulse Rate 73 Pulse Rate [ Anterior] Respiratory 24 Rate Respiratory Rate [Anterior] Blood Pressure 116/90 116/90 144/67 O2 Sat by Pulse 98 Oximetry 11/08/18 13:36 Temperature Pulse Rate Pulse Rate [ 92 H Anterior] Respiratory Rate Respiratory 20 Rate [Anterior] Blood Pressure O2 Sat by Pulse Oximetry Constitutional: no acute distress, other (morbidly obese) Eyes: non-icteric ENT: oropharynx moist, other (poor dentition, crowded oropharynx) Neck: supple, no lymphadenopathy, no JVD, other (neck size over 17 inches) Effort: normal Ascultation: Bilateral: diminished breath sounds Cardiovascular: regular rate and rhythm Gastrointestinal: normoactive bowel sounds, soft, non-tender, other (morbidly obese) Integumentary: normal Extremities: no cyanosis, no edema, pink and warm Neurologic: normal mental status, non-focal exam CBC and BMP: 11/08/18 04:40 11/08/18 04:40 ABG, PT/INR, D-dimer: ABG ABG pH 7.366 pH Units (7.350-7.450) 11/06/18 Unknown ABG pCO2 47.3 mm Hg 11/06/18 Unknown ABG pO2 95.9 mm Hg (80.0-90.0) H 11/06/18 Unknown ABG O2 Saturation 96.9 % (95.0-99.0) 11/06/18 Unknown PT/INR, D-dimer PT 13.0 Sec. (12.2-14.9) 11/06/18 08:50 INR 1.01 (0.87-1.13) 11/06/18 08:50 Abnormal lab findings: Abnormal Labs 11/06/18 11/06/18 11/06/18 08:50 08:50 11:24 WBC 12.3 H RDW Lymph % (Auto) [place] % (Auto) 9.4 H Baso % (Auto) 2.4 H [place] # 1.2 H Baso # 0.3 H Seg Neutrophils % Seg Neuts % (Manual) Lymphocytes % (Manual) Seg Neutrophils # Seg Neutrophils # Man ABG pO2 ABG HCO3 BUN 8 L Glucose 175 H POC Glucose Lactic Acid 4.40 H* Albumin 11/06/18 11/06/18 11/06/18 13:28 15:33 16:44 WBC RDW Lymph % (Auto) [place] % (Auto) Baso % (Auto) [place] # Baso # Seg Neutrophils % Seg Neuts % (Manual) Lymphocytes % (Manual) Seg Neutrophils # Seg Neutrophils # Man ABG pO2 ABG HCO3 BUN Glucose POC Glucose Lactic Acid 4.40 H* 4.50 H* 3.60 H* Albumin 11/06/18 11/06/18 11/06/18 17:00 19:11 22:43 WBC RDW Lymph % (Auto) [place] % (Auto) Baso % (Auto) [place] # Baso # Seg Neutrophils % Seg Neuts % (Manual) Lymphocytes % (Manual) Seg Neutrophils # Seg Neutrophils # Man ABG pO2 ABG HCO3 BUN Glucose POC Glucose 199 H 175 H Lactic Acid 3.90 H* Albumin 11/06/18 11/07/18 11/07/18 Unknown 00:49 04:09 WBC 19.1 H RDW Lymph % (Auto) 7.6 L [place] % (Auto) Baso % (Auto) [place] # Baso # Seg Neutrophils % 89.1 H Seg Neuts % (Manual) Lymphocytes % (Manual) Seg Neutrophils # 17.0 H Seg Neutrophils # Man ABG pO2 95.9 H ABG HCO3 26.5 H BUN Glucose POC Glucose Lactic Acid 2.10 H* Albumin 11/07/18 11/07/18 11/07/18 04:09 04:09 07:35 WBC RDW Lymph % (Auto) [place] % (Auto) Baso % (Auto) [place] # Baso # Seg Neutrophils % Seg Neuts % (Manual) Lymphocytes % (Manual) Seg Neutrophils # Seg Neutrophils # Man ABG pO2 ABG HCO3 BUN Glucose 186 H POC Glucose 141 H Lactic Acid 2.30 H* Albumin 11/07/18 11/07/18 11/07/18 11:39 16:43 21:14 WBC RDW Lymph % (Auto) [place] % (Auto) Baso % (Auto) [place] # Baso # Seg Neutrophils % Seg Neuts % (Manual) Lymphocytes % (Manual) Seg Neutrophils # Seg Neutrophils # Man ABG pO2 ABG HCO3 BUN Glucose POC Glucose 155 H 160 H Lactic Acid 2.80 H* Albumin 11/07/18 11/08/18 11/08/18 22:16 04:40 04:40 WBC 22.4 H RDW 15.6 H Lymph % (Auto) [place] % (Auto) Baso % (Auto) [place] # Baso # Seg Neutrophils % Seg Neuts % (Manual) 90.0 H Lymphocytes % (Manual) 8.0 L Seg Neutrophils # Seg Neutrophils # Man 20.2 H ABG pO2 ABG HCO3 BUN Glucose POC Glucose 154 H Lactic Acid 2.70 H* Albumin 11/08/18 11/08/18 11/08/18 04:40 07:47 11:32 WBC RDW Lymph % (Auto) [place] % (Auto) Baso % (Auto) [place] # Baso # Seg Neutrophils % Seg Neuts % (Manual) Lymphocytes % (Manual) Seg Neutrophils # Seg Neutrophils # Man ABG pO2 ABG HCO3 BUN Glucose 168 H POC Glucose 175 H 170 H Lactic Acid Albumin 3.7 L
[2018-11-08] MEDS: PULMICORT IH SCH ×2 (13:48→20:27)
--- NOTE | 2018-11-08 16:24 | Progress Note ---
Assessment and Plan Acute hypoxic hypercapnic respiratory failure Obstructive sleep apnea syndrome COPD with exacerbation Suspect obesity hypoventilation syndrome Hypertension Diabetes mellitus Hyperlipidemia History of CVA Leukocytosis due to steroid Plan: Continue with IV steroids, antibiotic and bronchodilator therapy. Continue BiPAP at night while sleeping Full pulmonary function test and sleep study as outpatient. Weight reduction was recommended. Smoking cessation counseling provided. We will assess for home O2 requirement Brief History: 63 YO Male with Obesity Hypoventilation, LAUREN noncompliant with CPAP, HTN, DM, GERD, Gout, HLD presents to ED for shortness of breath over the past 2 days with increased productive cough with clear sputum, increased nebulizer therapy without relief. EMS notified, and upon arrival the patient was found to be in distress and transported to [facility]. Pt seen and evaluated in ED and found to have COPD Exacerbation , and Acute Hypoxemic Respiratory Failure. Pt treated with nebulizer therapy, and NIPPV in the ED without significant improvement. Pt admitted to medical floor and initiated on COPD protocol. Radiological data: Chest x-ray, CTA chest Hospitalist Physical exam: GENERAL: well-developed and well-nourished lying on bed appeared to be in no discomfort. HEENT: Normocephalic. Atraumatic. No conjunctival congestion or icterus. Patient has moist mucous membranes. NECK: Supple. Trachea midline. CHEST/LUNGS: diminished BS auscultated bilaterally, breathing nonlabored. HEART/CARDIOVASCULAR: Regular in rate and rhythm. S1 and S2 positive. ABDOMEN: Abdomen is soft, nontender. Patient has normal bowel sounds. SKIN: There is no rash. Warm and dry. NEURO: No focal motor deficit. Follows command. MUSCULOSKELETAL: No joint effusion or tenderness. EXTRIMITY: No edema, no cyanosis or clubbing. PSYCH: Cooperative. Subjective Date of service: 11/08/18 Principal diagnosis: Increasing SOB Interval history: Patient seen and examined. Medical records and medication list reviewed. No acute event overnight noted by the RN. Patient continued to complain some difficulty breathing on minimal exertion. Patient is tolerating diet. Discussed plan of care at bedside with patient. Objective - Constitutional Vitals: Vital Signs - 12hr 11/08/18 11/08/18 11/08/18 04:36 04:37 05:36 Temperature 98.3 F Pulse Rate 83 Pulse Rate [ 100 H Anterior] Respiratory 20 Rate Respiratory 20 Rate [Anterior] Blood Pressure 146/76 O2 Sat by Pulse 98 94 Oximetry 11/08/18 11/08/18 11/08/18 08:32 09:20 10:16 Temperature Pulse Rate Pulse Rate [ 88 Anterior] Respiratory Rate Respiratory 20 Rate [Anterior] Blood Pressure 116/90 O2 Sat by Pulse 95 Oximetry 11/08/18 11/08/18 11/08/18 10:17 10:18 11:23 Temperature 97.6 F Pulse Rate 73 Pulse Rate [ Anterior] Respiratory 24 Rate Respiratory Rate [Anterior] Blood Pressure 116/90 116/90 144/67 O2 Sat by Pulse 98 Oximetry 11/08/18 13:36 Temperature Pulse Rate Pulse Rate [ 92 H Anterior] Respiratory Rate Respiratory 20 Rate [Anterior] Blood Pressure O2 Sat by Pulse Oximetry - Labs CBC & Chem 7: 11/08/18 04:40 11/08/18 04:40 Labs: Abnormal lab results 11/07/18 11/07/18 11/07/18 Range/Units 16:43 21:14 22:16 WBC (4.5-11.0) K/mm3 RDW (13.2-15.2) % Seg Neuts % (Manual) (40.0-70.0) % Lymphocytes % (Manual) (13.4-35.0) % Seg Neutrophils # Man (1.8-7.7) K/mm3 Glucose (75-100) mg/dL POC Glucose 160 H 154 H (70-105) Lactic Acid 2.80 H* (0.7-2.0) mmol/L Albumin (3.9-5) g/dL 11/08/18 11/08/18 11/08/18 Range/Units 04:40 04:40 04:40 WBC 22.4 H (4.5-11.0) K/mm3 RDW 15.6 H (13.2-15.2) % Seg Neuts % (Manual) 90.0 H (40.0-70.0) % Lymphocytes % (Manual) 8.0 L (13.4-35.0) % Seg Neutrophils # Man 20.2 H (1.8-7.7) K/mm3 Glucose 168 H (75-100) mg/dL POC Glucose (70-105) Lactic Acid 2.70 H* (0.7-2.0) mmol/L Albumin 3.7 L (3.9-5) g/dL 11/08/18 11/08/18 11/08/18 Range/Units 07:47 11:32 16:25 WBC (4.5-11.0) K/mm3 RDW (13.2-15.2) % Seg Neuts % (Manual) (40.0-70.0) % Lymphocytes % (Manual) (13.4-35.0) % Seg Neutrophils # Man (1.8-7.7) K/mm3 Glucose (75-100) mg/dL POC Glucose 175 H 170 H 180 H (70-105) Lactic Acid (0.7-2.0) mmol/L Albumin (3.9-5) g/dL
[2018-11-08] MEDS: BROVANA NEBU IH SCH (20:27)
[2018-11-08] MEDS: PRAVACHOL PO SCH (21:54)
[2018-11-08] MEDS: LOVENOX SUB-Q SCH (21:56)
--- NOTE | 2018-11-09 04:32 | Event Note ---
<DENTON JOSHUA - Last Filed: 11/09/18 04:25> Date: 11/08/18 Patient is a 63-year-old female admitted for acute PE, abdomen distention due to ascites, cirrhosis of the liver, (severe hepatorenal syndrome), ESRD on HD for which she is currently on Heparin drip for PE. Pt's nurse reports nose bleed and hematomesis. Pt was assessed, in mild distress due to abdominal distension, she reports that her nose was dripping bood, and she also has blood from her sputum. Her heparin was put on hold, stat labs was ordered which showed critical APTT a nd 130.1, PT and INR was 17.8 and 1.51, her HH was to 7.6 and 23.2. Pt is schedule for paracenteris in am. Her nose was packed with kathryn saturated with Afrin, pt was assessed 2 hours after, she reports that the bleeding was discontinued, she self removed the packing due to inability to breath. Heparin remained on hold for bleeding, will resume heparin drip post paracentesis in am. <ALANNA SEXTON - Last Filed: 11/09/18 11:33> Please disregard [employer] documentation - placed on wrong pt.
[2018-11-09] MEDS: SOLU-Medrol IV SCH ×3 (05:28→18:00)
[2018-11-09] MEDS: HumaLOG SUB-Q SCH ×3 (08:13→16:30)
[2018-11-09] MEDS ORDERED: NORVASC PO SCH ×2 (08:22→10:00)
[2018-11-09] MEDS: BROVANA NEBU IH SCH (09:34)
[2018-11-09] MEDS: PULMICORT IH SCH (09:34)
[2018-11-09] MEDS: ZYLOPRIM PO SCH (10:10)
[2018-11-09] MEDS: PEPCID PO SCH (10:10)
[2018-11-09] MEDS: COZAAR PO SCH (10:10)
[2018-11-09] MEDS: HALFPRIN EC PO SCH (10:10)
[2018-11-09] MEDS: SODIUM CHLORIDE FLUSH SYRINGE 10 ML IV SCH (10:11)
[2018-11-09] MEDS: ZITHROMAX 500 MG in NACL 0.9% 250ML 250 ML IV SCH (10:11)
[2018-11-09] MEDS: NAPROSYN PO SCH (10:34)
[2018-11-09] MEDS: ROCEPHIN/NS 2 GM/100 ML 2 GM/100 ML BAG IV SCH (11:05)
--- NOTE | 2018-11-09 11:42 | Discharge Summary ---
Providers - Providers Date of Admission: 11/06/18 12:27 Date of discharge: 11/09/18 Attending physician: ALANNA SEXTON 11/06/18 12:31 Consult to Physician [CONS] Routine Comment: Consulting Provider: DEIDRE SIMPSON Physician Instructions: Reason For Exam: Sleep Apnea [facility] Condition: Fair Pertinent studies: Chest x-ray, CTA chest Hospital course: 63 YO Male with Obesity Hypoventilation, LAUREN noncompliant with CPAP, HTN, DM, GERD, Gout, HLD presents to ED for shortness of breath over the past 2 days with increased productive cough with clear sputum, increased nebulizer therapy without relief. EMS notified, and upon arrival the patient was found to be in distress and transported to [facility]. Pt seen and evaluated in ED and found to have COPD Exacerbation , and Acute Hypoxemic Respiratory Failure. Pt treated with nebulizer therapy, and NIPPV in the ED without significant improvement. Pt admitted to medical floor and initiated on COPD protocol. - He was placed on IV steroids, antibiotic and bronchodilator therapy, BiPAP at night while sleeping - recommended Full pulmonary function test and sleep study as outpatient. - Weight reduction was recommended, Smoking cessation counseling provided. - Assessed for home O2 requirement but did not qualify - symptom improved with supportive care - discharged home in stable condition. Discharge diagnosis: Acute hypoxic hypercapnic respiratory failure, resolved Obstructive sleep apnea syndrome COPD with exacerbation Suspect obesity hypoventilation syndrome Hypertension Diabetes mellitus Hyperlipidemia History of CVA Leukocytosis due to steroid Hospitalist Physical exam: GENERAL: well-developed and well-nourished lying on bed appeared to be in no discomfort. HEENT: Normocephalic. Atraumatic. No conjunctival congestion or icterus. Patient has moist mucous membranes. NECK: Supple. Trachea midline. CHEST/LUNGS: diminished BS auscultated bilaterally, breathing nonlabored. HEART/CARDIOVASCULAR: Regular in rate and rhythm. S1 and S2 positive. ABDOMEN: Abdomen is soft, nontender. Patient has normal bowel sounds. SKIN: There is no rash. Warm and dry. NEURO: No focal motor deficit. Follows command. MUSCULOSKELETAL: No joint effusion or tenderness. EXTRIMITY: No edema, no cyanosis or clubbing. PSYCH: Cooperative. Disposition: DC- TO HOME OR SELFCARE Time spent for discharge: 34 minutes Core Measure Documentation - Palliative Care Palliative Care/ Comfort Measures: Not Applicable - Core Measures Any of the following diagnoses?: none Exam - Constitutional Vitals: Temp Pulse Resp BP Pulse Ox 97.3 F L 66 20 150/80 100 11/09/18 05:26 11/09/18 10:09 11/09/18 10:34 11/09/18 10:09 11/09/18 05:26 Plan Activity: advance as tolerated Weight Bearing Status: Weight Bear as Tolerated Diet: low fat, low salt Follow up with: JOSE ELIAS GAEASTON MD MARIA R [Primary Care Provider] - 3-5 Days REUBEN PEREZ MD [Staff Physician] - 7 Days Prescriptions: predniSONE [Deltasone] 50 mg PO QDAY #5 tab ALBUTEROL Inhaler (OR & NICU) [Proair] 2 puff IH QID PRN #1 vial PRN Reason: Shortness Of Breath Budesonide/Formoterol Fumarate [Symbicort 160-4.5 Mcg Inhaler] 10.2 gm IH BID 30 Days #1 hfa.aer.ad Azithromycin [Zithromax] 250 mg PO DAILY #3 tablet
--- NOTE | 2018-11-09 12:51 | Progress Note ---
Assessment and Plan 63 y/o male with acute respiratory failure thought secondary to COPD exacerbation with untreated LAUREN/OHS. 1. Needs echo to assess for pulm HTN, still feel this is warranted. 2. Continue PPV at night. Thank you to RT for documenting patient refusal. This needs to be noted as impedement to proper care. 3. Most likely will need supplemental oxygen at discharge, suggest walk test prior to discharge. 4. Will increase steroid therapy to q6 for the next 24 hours. Has not been full 24 hours. If discharged would need likely BID Prednisone 60 for at least 2 days then 60 daily for 4 days, 40 for 4 days, 20 for 4 days then 10 for 4 days then stop. 5. Will need scripts for Symbicort 160 2 puffs BID of discharged. Subjective Date of service: 11/09/18 Principal diagnosis: Increasing SOB Interval history: Appears patient is being discharged today. Has been weaned down to 3 liters from 35% venti mask. Did not wear bipap last night. I just increased steroids yesterday. Stopped IVF's. Objective Vital Signs - 12hr 11/09/18 11/09/18 11/09/18 05:26 09:34 10:00 Temperature 97.3 F L Pulse Rate 66 Pulse Rate [ 92 H Anterior] Respiratory 20 Rate Respiratory 18 Rate [Anterior] Blood Pressure 150/80 O2 Sat by Pulse 100 96 Oximetry 11/09/18 11/09/18 10:09 10:34 Temperature Pulse Rate 66 Pulse Rate [ Anterior] Respiratory 20 Rate Respiratory Rate [Anterior] Blood Pressure 150/80 O2 Sat by Pulse Oximetry Constitutional: no acute distress, other (morbidly obese) Eyes: non-icteric ENT: oropharynx moist, other (poor dentition, crowded oropharynx) Neck: supple, no lymphadenopathy, no JVD, other (neck size over 17 inches) Effort: normal Ascultation: Bilateral: diminished breath sounds Cardiovascular: regular rate and rhythm Gastrointestinal: normoactive bowel sounds, soft, non-tender, other (morbidly obese) Integumentary: normal Extremities: no cyanosis, no edema, pink and warm Neurologic: normal mental status, non-focal exam CBC and BMP: 11/08/18 04:40 11/08/18 04:40 ABG, PT/INR, D-dimer: ABG ABG pH 7.366 pH Units (7.350-7.450) 11/06/18 Unknown ABG pCO2 47.3 mm Hg 11/06/18 Unknown ABG pO2 95.9 mm Hg (80.0-90.0) H 11/06/18 Unknown ABG O2 Saturation 96.9 % (95.0-99.0) 11/06/18 Unknown PT/INR, D-dimer PT 13.0 Sec. (12.2-14.9) 11/06/18 08:50 INR 1.01 (0.87-1.13) 11/06/18 08:50 Abnormal lab findings: Abnormal Labs 11/06/18 11/06/18 11/06/18 08:50 08:50 11:24 WBC 12.3 H RDW Lymph % (Auto) [place] % (Auto) 9.4 H Baso % (Auto) 2.4 H [place] # 1.2 H Baso # 0.3 H Seg Neutrophils % Seg Neuts % (Manual) Lymphocytes % (Manual) Seg Neutrophils # Seg Neutrophils # Man ABG pO2 ABG HCO3 BUN 8 L Glucose 175 H POC Glucose Lactic Acid 4.40 H* Albumin 11/06/18 11/06/18 11/06/18 13:28 15:33 16:44 WBC RDW Lymph % (Auto) [place] % (Auto) Baso % (Auto) [place] # Baso # Seg Neutrophils % Seg Neuts % (Manual) Lymphocytes % (Manual) Seg Neutrophils # Seg Neutrophils # Man ABG pO2 ABG HCO3 BUN Glucose POC Glucose Lactic Acid 4.40 H* 4.50 H* 3.60 H* Albumin 11/06/18 11/06/18 11/06/18 17:00 19:11 22:43 WBC RDW Lymph % (Auto) [place] % (Auto) Baso % (Auto) [place] # Baso # Seg Neutrophils % Seg Neuts % (Manual) Lymphocytes % (Manual) Seg Neutrophils # Seg Neutrophils # Man ABG pO2 ABG HCO3 BUN Glucose POC Glucose 199 H 175 H Lactic Acid 3.90 H* Albumin 11/06/18 11/07/18 11/07/18 Unknown 00:49 04:09 WBC 19.1 H RDW Lymph % (Auto) 7.6 L [place] % (Auto) Baso % (Auto) [place] # Baso # Seg Neutrophils % 89.1 H Seg Neuts % (Manual) Lymphocytes % (Manual) Seg Neutrophils # 17.0 H Seg Neutrophils # Man ABG pO2 95.9 H ABG HCO3 26.5 H BUN Glucose POC Glucose Lactic Acid 2.10 H* Albumin 11/07/18 11/07/18 11/07/18 04:09 04:09 07:35 WBC RDW Lymph % (Auto) [place] % (Auto) Baso % (Auto) [place] # Baso # Seg Neutrophils % Seg Neuts % (Manual) Lymphocytes % (Manual) Seg Neutrophils # Seg Neutrophils # Man ABG pO2 ABG HCO3 BUN Glucose 186 H POC Glucose 141 H Lactic Acid 2.30 H* Albumin 11/07/18 11/07/18 11/07/18 11:39 16:43 21:14 WBC RDW Lymph % (Auto) [place] % (Auto) Baso % (Auto) [place] # Baso # Seg Neutrophils % Seg Neuts % (Manual) Lymphocytes % (Manual) Seg Neutrophils # Seg Neutrophils # Man ABG pO2 ABG HCO3 BUN Glucose POC Glucose 155 H 160 H Lactic Acid 2.80 H* Albumin 11/07/18 11/08/18 11/08/18 22:16 04:40 04:40 WBC 22.4 H RDW 15.6 H Lymph % (Auto) [place] % (Auto) Baso % (Auto) [place] # Baso # Seg Neutrophils % Seg Neuts % (Manual) 90.0 H Lymphocytes % (Manual) 8.0 L Seg Neutrophils # Seg Neutrophils # Man 20.2 H ABG pO2 ABG HCO3 BUN Glucose POC Glucose 154 H Lactic Acid 2.70 H* Albumin 11/08/18 11/08/18 11/08/18 04:40 07:47 11:32 WBC RDW Lymph % (Auto) [place] % (Auto) Baso % (Auto) [place] # Baso # Seg Neutrophils % Seg Neuts % (Manual) Lymphocytes % (Manual) Seg Neutrophils # Seg Neutrophils # Man ABG pO2 ABG HCO3 BUN Glucose 168 H POC Glucose 175 H 170 H Lactic Acid Albumin 3.7 L 11/08/18 11/08/18 11/09/18 16:25 22:06 07:56 WBC RDW Lymph % (Auto) [place] % (Auto) Baso % (Auto) [place] # Baso # Seg Neutrophils % Seg Neuts % (Manual) Lymphocytes % (Manual) Seg Neutrophils # Seg Neutrophils # Man ABG pO2 ABG HCO3 BUN Glucose POC Glucose 180 H 140 H 141 H Lactic Acid Albumin 11/09/18 12:28 WBC RDW Lymph % (Auto) [place] % (Auto) Baso % (Auto) [place] # Baso # Seg Neutrophils % Seg Neuts % (Manual) Lymphocytes % (Manual) Seg Neutrophils # Seg Neutrophils # Man ABG pO2 ABG HCO3 BUN Glucose POC Glucose 169 H Lactic Acid Albumin
[2018-11-09 17:42] VITALS: BP 161/80
== END 2018-11-09 20:00 | disposition home or self-care (01) | DRG 189 ==
LOC: ED 08:05 → 3A 12:27
PROVIDERS: ADMIT Internal Medicine; ATTEND Internal Medicine
PROC: 4A033R1 Measurement of Arterial Saturation, Peripheral, Percutaneous Approach (ICD-10-PCS; principal; 2018-11-06)
PROC: 5A09357 Assistance with Respiratory Ventilation, Less than 24 Consecutive Hours, Continuous Positive Airway Pressure (ICD-10-PCS; 2018-11-06)
PROC: 5A09357 Assistance with Respiratory Ventilation, Less than 24 Consecutive Hours, Continuous Positive Airway Pressure (ICD-10-PCS; 2018-11-07)
DX: J96.21 Acute and chronic respiratory failure with hypoxia (principal); J96.22 Acute and chronic respiratory failure with hypercapnia; J44.1 Chronic obstructive pulmonary disease with (acute) exacerbation; E66.2 Morbid (severe) obesity with alveolar hypoventilation; K21.9 Gastro-esophageal reflux disease without esophagitis; M10.9 Gout, unspecified; E78.5 Hyperlipidemia, unspecified; D72.829 Elevated white blood cell count, unspecified; T38.0X5A Adverse effect of glucocorticoids and synthetic analogues, initial encounter; E87.2 Acidosis; E78.2 Mixed hyperlipidemia; I10 Essential (primary) hypertension; E11.9 Type 2 diabetes mellitus without complications; F17.200 Nicotine dependence, unspecified, uncomplicated; J18.1 Lobar pneumonia, unspecified organism; Z82.49 Family history of ischemic heart disease and other diseases of the circulatory system; Z68.39 Body mass index [BMI] 39.0-39.9, adult; Z91.14 Patient's other noncompliance with medication regimen; Z86.73 Personal history of transient ischemic attack (TIA), and cerebral infarction without residual deficits; Y92.89 Other specified places as the place of occurrence of the external cause; Z83.3 Family history of diabetes mellitus; Z79.82 Long term (current) use of aspirin; Z79.899 Other long term (current) drug therapy; Z71.6 Tobacco abuse counseling; Z71.3 Dietary counseling and surveillance; Z72.89 Other problems related to lifestyle
CPT/HCPCS: 36415; 71045; 71275; 80048; 80053; 82140; 82803; 82962; 83690; 83880; 84484; 85007; 85025; 85610; 85730; 87040; 87116; 93005; 93010; 93306; 94640; 94644; 94660; 94760; 96361; 96365; G0378; A9270-GY; J0456; J0692; J0696; J1650; J1815; J2920; J7030; J7050; Q9967

== ENCOUNTER 2020-03-15 16:49 | Emergency (ER) | payer MEDICAID ==
--- NOTE | 2020-03-15 17:02 | Emergency Department Report ---
HPI - General Time Seen by Provider: 03/15/20 16:58 - HPI HPI: Room 1 The patient is a 64-year-old male present with a chief complaint of cardiac arrest. Per EMS the patient had complained of shortness of breath and attempted to use his nebulizer. The patient called for his to call 911. EMS was dispatched and while in route received an updated call stating that the patient went into cardiac arrest. EMS arrived on scene at 16: 11 to find the patient in asystole. ACLS protocols were initiated and the patient's rhythm changed to PEA. EMS was unable to intubate the patient prior to arrival but was able to establish an IO access. Upon arrival to the ED the patient was immediately intubated by myself using a glidescope and ACLS protocols were continued. There was no return of spontaneous circulation ED Past Medical Hx - Past Medical History Hx Hypertension: Yes Hx Diabetes: Yes Hx COPD: Yes Additional medical history: Acid Reflux. Gout. High cholesterol - Family History Family history: no significant - Social History Smoking Status: Former Smoker Substance Use Type: None - Medications Home Medications: Home Medications Medication Instructions Recorded Confirmed Last Taken Type Aspirin [Adult Aspirin] 81 mg PO QDAY 11/06/18 11/06/18 Unknown History Famotidine [Pepcid] 20 mg PO QDAY 11/06/18 11/06/18 Unknown History Losartan Potassium 100 mg PO QDAY 11/06/18 11/06/18 Unknown History Metformin HCl [Glucophage Xr] 500 mg PO BID 11/06/18 11/06/18 Unknown History Naproxen [Naprosyn] 500 mg PO BID 11/06/18 11/06/18 Unknown History Simvastatin 20 mg PO QHS 11/06/18 11/06/18 Unknown History Albuterol Mdi (or & Nicu Only) 2 puff IH QID PRN #1 vial 11/09/18 Unknown Rx [Proair] Amlodipine Besylate [Norvasc] 10 mg PO QDAY #30 11/09/18 11/06/18 Unknown Rx Azithromycin [Zithromax] 250 mg PO DAILY #3 tablet 11/09/18 Unknown Rx Budesonide/Formoterol Fumarate 10.2 gm IH BID 30 Days #1 11/09/18 Unknown Rx [Symbicort 160-4.5 Mcg Inhaler] hfa.aer.ad allopurinoL [Zyloprim] 100 mg PO QDAY #30 11/09/18 11/06/18 Unknown Rx predniSONE [Deltasone] 50 mg PO QDAY #5 tab 11/09/18 Unknown Rx ED Review of Systems ROS: Stated complaint: CARDIAC ARREST Other details as noted in HPI Comment: Unobtainable due to pts medical conditions Physical Exam - Physical Exam Physical Exam: GENERAL: The patient is well-developed well-nourished male lying on stretcher receiving chest compressions from EMS and being bagged via BVM. [] HEENT: Normocephalic. Atraumatic. OPA in place removed by myself prior to intubation NECK: Trachea midline CHEST/LUNGS: No spontaneous respirations. Breath sounds equal bilaterally with bagging after intubation by myself HEART/CARDIOVASCULAR: No heart sounds ABDOMEN: Abdomen is soft SKIN: There is no diaphoresis. NEURO: GCS 3 MUSCULOSKELETAL: There is no evidence of acute injury. - Intubation Time Out Performed: No Sedative: none Laryngoscope: fiberoptic video scope Size: 3 Assist Device Used: fiberoptic device ET Tube Size: 8 Tube Secured Depth (cm): 24 Tube Secured Location: lips Tube Placement Confirmation: visualized tube passing t, equal breath sounds bilat Patient Tolerated Procedure: no complications Intubation Complications: none ED Medical Decision Making - Differential Diagnosis Respiratory arrest Critical care attestation.: If time is entered above; I have spent that time in minutes in the direct care of this critically ill patient, excluding procedure time. ED Disposition Clinical Impression: Respiratory arrest Disposition: DC-20 Is pt being admited?: No Does the pt Need Aspirin: No Condition: Poor Time of Disposition: 16:58 (Patient )
== END 2020-03-15 18:58 ==
LOC: ED 16:49
DX: R09.2 Respiratory arrest (principal); I10 Essential (primary) hypertension; E11.9 Type 2 diabetes mellitus without complications; J44.9 Chronic obstructive pulmonary disease, unspecified; Z87.891 Personal history of nicotine dependence; Z79.2 Long term (current) use of antibiotics; Z79.899 Other long term (current) drug therapy
CPT/HCPCS: 31500